=== PATIENT | male | born 1965 | race Caucasian/White ===

== ENCOUNTER 2016-07-27 19:39 | Emergency (ER) | payer SELFPAY ==
[~2016-07-27] VITALS: Ht 177.8 cm; Wt 109.0 kg
[2016-07-27] MEDS ORDERED: MOTRIN800 MG PO (19:58)
[2016-07-27] MEDS ORDERED: PENICILLN VK500 MG PO (19:58)
[2016-07-27] MEDS ORDERED: LORTAB 5-325 MG1 TAB PO (19:58)
[2016-07-27 20:10] VITALS: BP 114/79
== END 2016-07-27 20:10 | disposition home or self-care (01) | DRG 159 ==
LOC: ED 19:39
DX: K04.7 Periapical abscess without sinus (principal); F17.220 Nicotine dependence, chewing tobacco, uncomplicated; K08.89 Other specified disorders of teeth and supporting structures; R50.9 Fever, unspecified